=== PATIENT | female | born 1995 | race Caucasian/White ===

== ENCOUNTER 2024-11-04 23:05 | Emergency (ER) | payer BC ==
[~2024-11-04] VITALS: Ht 167.6 cm; Wt 63.5 kg
[2024-11-04] MEDS ORDERED: PLEC3TAB2 PO (23:13)
[2024-11-04 23:49] LABS: PLATELET COUNT (AUTO) 322 K/uL (179-408); RED BLOOD CELL COUNT(AUTO) 4.05 MIL/uL (3.63-4.92); RED CELL DISTRIBUTION WIDTH 13.2 % (12.3-17.7); WHITE BLOOD COUNT (AUTO) 6.8 K/uL (3.8-11.8)
[2024-11-04 23:50] LABS: *URINE HCG, QUAL NEGATIVE (NEGATIVE)
[2024-11-05 00:01] LABS: ASPARTATE AMINOTRANSFERASE 7 U/L (15-37); CREATININE 0.6 mg/dL (0.6-1.3); SODIUM SERUM 144 mmol/L (136-145); TOTAL PROTEIN, SERUM 7.7 g/dL (6.4-8.2); UREA NITROGEN, BLOOD 7 mg/dL (7-18)
[2024-11-05 02:07] VITALS: BP 101/68
[2024-11-05 02:09] VITALS: BP 101/68; O2SAT 99
== END 2024-11-05 02:10 | disposition home or self-care (01) ==
LOC: ER 23:05
DX: R10.13 Epigastric pain (principal); R19.7 Diarrhea, unspecified; R07.9 Chest pain, unspecified; Z90.49 Acquired absence of other specified parts of digestive tract
CPT/HCPCS: 36415; 71045; 84484; 84703; 85025; A4606; A4663